=== PATIENT | female | born 1970 | race Caucasian/White ===

== ENCOUNTER 2022-03-06 08:38 | Outpatient (CLI) | payer OTHER, SELFPAY ==
[2022-03-06 16:49] LABS: Basophils Absolute Auto 0.03 K/uL (0.00-0.30); Basophils Percent Auto 0.4 % (0.0-3.0); Eosinophils Absolute Auto 0.32 K/uL (0.00-0.50); Eosinophils Percent Auto 4.1 % (0.0-7.0); Hematocrit 39.6 % (33.0-51.0); Hemoglobin* 12.9 gm/dL (12.0-16.0); Immature Granulocytes Abs Auto 0.03 K/uL (0.00-0.30); Lymphocytes Absolute Auto 1.85 K/uL (0.90-2.90); Lymphocytes Percent Auto 23.5 % (20-44); Mean Corpuscular HGB Conc 33 gm/dL (32-36); Mean Corpuscular Hemoglobin 30 pg (26-34); Mean Corpuscular Volume 93 fL (80-100); Monocytes Percent Auto 7.4 % (0.0-11.0); Neutrophils Absolute Auto 5.05 K/uL (1.7-7.0); Neutrophils Percent Auto 64.2 % (42.0-72.0); Platelet Count* 250 K/uL (140-440); Red Blood Count 4.25 m/uL (4.00-5.20); White Blood Count* 7.86 K/uL (4.50-11.00)
[2022-03-06 16:54] LABS: Slide Review Reflex No
[2022-03-06 17:52] LABS: Chloride* 105 mmol/L (96-114); Sodium* 140 mmol/L (135-149)
[2022-03-06 17:53] LABS: Potassium* 4.2 mmol/L (3.6-5.1)
[2022-03-06 17:55] LABS: Alanine Aminotransferase* 23 U/L (4-35); Carbon Dioxide* 26 mmol/L (20-32); Creatinine* 0.8 mg/dL (0.5-1.5); Estimated Glomerular Filt Rate 89 ml/min
[2022-03-06 17:56] LABS: Blood Urea Nitrogen* 15 mg/dL (7-30); Calcium* 9.1 mg/dL (8.4-10.6); Glucose* 78 mg/dL (60-115)
== END 2022-03-06 08:39 | disposition home or self-care (01) ==
PROVIDERS: PCP Family Medicine; Visit Provider Family Medicine
DX: G43.909 Migraine, unspecified, not intractable, without status migrainosus (principal)
CPT/HCPCS: 80048; 84460; 85025

== ENCOUNTER 2022-07-11 07:37 | Outpatient (CLI) | payer OTHER, SELFPAY | END 2022-07-11 07:38 | disposition home or self-care (01) | LOC: RAD 07:38 | PROVIDERS: PCP Family Medicine; Visit Provider Family Medicine | DX: Q23.1 Congenital insufficiency of aortic valve (principal); I35.1 Nonrheumatic aortic (valve) insufficiency; I34.0 Nonrheumatic mitral (valve) insufficiency; I07.1 Rheumatic tricuspid insufficiency | CPT/HCPCS: 93306 ==

== ENCOUNTER 2022-09-02 17:03 | Outpatient (CLI) | payer OTHER, SELFPAY ==
[2022-09-02 21:08] LABS: Uric Acid* 4.9 mg/dL (2.2-8.4)
[2022-09-02 21:11] LABS: C Reactive Protein* < 0.5 mg/dL (0.5-1.0)
[2022-09-04 21:01] LABS: Rheumatoid Factor <10 IU/mL (0-14)
[2022-09-05 11:03] LABS: Anti-Nuclear Ab(ANA)IgG ELISA Detected (None Detected)
[2022-09-06 22:57] LABS: ANA Pattern Speckled; Antinuclear AntibodyHEp-2 Detected (<1:80)
== END 2022-09-02 17:04 | disposition home or self-care (01) ==
PROVIDERS: PCP Family Medicine; Visit Provider Family Medicine
DX: M25.50 Pain in unspecified joint (principal)
CPT/HCPCS: 84550; 86039; 86140; 86431

== ENCOUNTER 2022-10-28 16:29 | Outpatient (CLI) | payer OTHER, SELFPAY ==
--- NOTE | 2022-10-28 16:45 | CRLHL7_ITS ---
For Patients: As a result of the Century Cures Act, medical imaging exams and procedure reports are released immediately into your electronic medical record. You may view this report before your referring provider. If you have questions, please contact your health care provider. BILATERAL SCREENING MAMMOGRAM WITH COMPUTER-AIDED DETECTION TECHNIQUE: CC and MLO views were obtained. These mammographic images have been obtained using full-field digital technique. These mammographic images were interpreted with the benefit of computer-aided detection. COMPARISON FILM: 04/02/21, 05/27/17, 12/15/13. FINDINGS: There are scattered areas of fibroglandular density. IMPRESSION: There is no radiographic evidence for malignancy. ASSESSMENT: BI-RADS Category 1: Negative RECOMMENDATION: Routine screening mammogram in 1 year. A lay language report of this examination will be provided to the patient. LUCHO NORWOOD M.D. Diagnostic/Nuclear Medicine Radiologist [email or web address] CHARLES:prieto Transcribed: 10/29/2022, 2:[address]/Dictated by: Lucho Norwood MD @ 10/29/2022 10:00:00 AM (Electronically Signed)
== END 2022-10-28 16:30 | disposition home or self-care (01) ==
LOC: MAMMO 16:30
PROVIDERS: PCP Family Medicine; Visit Provider Family Medicine
DX: Z12.31 Encounter for screening mammogram for malignant neoplasm of breast (principal)
CPT/HCPCS: 77067

== ENCOUNTER 2023-06-15 15:07 | Emergency (ER) | payer OTHER, SELFPAY ==
[2023-06-15 15:19] VITALS: BP 111/63; PULSE 78; RESP 20; TEMP 36.5; O2SAT 99; BMI 31.6
--- NOTE | 2023-06-15 15:37 | ED_ITS ---
HPI - Fall General Time Seen by Provider: 15:39 <Mirtha Fitzgerald Filed: 06/15/23 16:12> Date Seen: 06/15/23 <Mirtha Fitzgearld Filed: 06/15/23 16:12> Chief Complaint: Fall/Minor Trauma <Mirtha Fitzgerald Filed: 06/15/23 16:12> Stated Complaint: Fell this morning, knee/rib pain <Mirtha Fitzgerald Filed: 06/15/23 16:12> Time Seen by Provider: 06/15/23 15:09 <Mirtha Fitzgerald Filed: 06/15/23 16:12> Source: patient <Mirtha Fitzgerald Filed: 06/15/23 16:12> Mode of arrival: ambulatory <Mirtha Fitzgerald Filed: 06/15/23 16:12> Limitations: no limitations <Mirtha Fitzgerald Filed: 06/15/23 16:12> History of Present Illness HPI Narrative: Patient was at work this morning around 0830, 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 Patient did hit her head, but did not lose consciousness. Patient now complains of left-sided rib pain, sternum pain, and left knee pain. She is having some associated headaches. Of note, patient does have a history of migraines. Patient is not anticoagulated. No alcohol use, but does use tobacco daily. She reports multiple rib fractures in the past for which she has been prescribed lidocaine patches. Patient does have a lidocaine patch on at this time, but it is not giving her any relief. She rates her pain a 10/10 and states she is unable to ambulate due to the pain. Denies any neck pain, vision changes, abdominal pain, hematuria, bowel changes, or any other complaints at this time. <Mirtha Fitzgerald Filed: 06/15/23 16:12> Related Data Home Medications: Home Medications Medication Instructions Recorded Confirmed calcium 500 mg tablet 1,000 mg PO BID 01/24/22 04/06/23 cholecalciferol (vitamin D3) 25 25 mcg PO BID 01/24/22 04/06/23 mcg (1,000 unit) tablet cyclobenzaprine 10 mg tablet 10 mg PO TID PRN muscle spasm 01/24/22 04/06/23 multivitamin 1 tab PO QDAY 01/24/22 04/06/23 chlorhexidine gluconate 0.12 % 15 ml mucous membrane QDAY PRN 05/27/22 04/06/23 mouthwash magnesium aspartate HCl PO QDAY 05/27/22 04/06/23 zinc acetate PO QDAY 05/27/22 04/06/23 ascorbic acid (vitamin C) 1,000 mg 1 g PO BID 04/06/23 04/06/23 capsule Previous Rx's Medication Instructions Recorded nabumetone 750 mg tablet 750 mg PO BID #180 tabs 10/06/22 topiramate 100 mg tablet 100 mg PO QDAY #90 tabs 12/04/22 gabapentin 600 mg tablet 900 mg (1.5 x 600 mg) PO .HS #135 04/30/23 tabs omeprazole 20 mg capsule,delayed 20 mg PO QDAY #90 caps 04/30/23 release rizatriptan 10 mg tablet 10 mg PO ONCE PRN migraine 06/04/23 headache #10 tabs tramadol 50 mg tablet 50 mg PO TID PRN pain #90 tabs 06/04/23 cyclobenzaprine 10 mg tablet 10 mg PO TID #15 tabs 06/15/23 ketorolac 10 mg tablet 10 mg PO Q8H 5 days #15 tabs 06/15/23 <Mirtha Tate - Last Filed: 06/15/23 16:12> Allergies/Adverse Reactions: Allergies Allergy/AdvReac Type Severity Reaction Status Date / Time ibuprofen AdvReac Intermediate Unknown Verified 04/06/23 14:34 <Mirtha Tate Last Filed: 06/15/23 16:12> Review of Systems Status of ROS: Reports: 10 or more systems reviewed and unremarkable except as noted in History and below <Mirtha Tate Last Filed: 06/15/23 16:12> Const: Denies: fever, chills, change in weight, fatigue or night sweats <Mirtha Tate Last Filed: 06/15/23 16:12> Eyes: Denies: change in vision, blurry vision, blind spots, light sensitivity, eye discomfort, eye discharge or seeing flashes <Mirtha Tate Last Filed: 06/15/23 16:12> ENMT: Denies: throat pain, neck pain, difficulty swallowing or mouth pain <[facility] Last Filed: 06/15/23 16:12> Cardio: Denies: chest pain, palpitations, lightheadedness or shortness of breath with exertion <[facility] Last Filed: 06/15/23 16:12> Resp: Denies: shortness of breath or cough <[facility] Last Filed: 1 08/16/22 16:12> GI: Denies: difficulty swallowing <[facility] Last Filed: 06/15/23 16:12> : Denies: blood in urine <[facility] Last Filed: 06/15/23 16:12> Musculo: Reports: joint pain, limited range of motion (secondary to pain) and other (left-sided rib pain, sternum pain, and left knee pain); Denies: back pain, neck pain or extremity swelling <[facility] Last Filed: 06/15/23 16:12> Integ/Breast: Denies: rash, sores, new lesion or non-healing lesion <[facility] Last Filed: 06/15/23 16:12> Neuro: Reports: headache; Denies: numbness in extremities or weakness in extremities <[facility] Last Filed: 06/15/23 16:12> Endo: Denies: fatigue <[facility] Last Filed: 06/15/23 16:12> [facility] Medical History: Medical History (Updated 06/15/23 @ 17:04 by Rakesh Parker MD) Obesity with body mass index greater than 30 ?E66.9 - Obesity, unspecified (ICD-10) Nicotine dependence ?F17.200 - Nicotine dependence, unspecified, uncomplicated (ICD-10) History of cervical dysplasia (05/17/10) ?Z87.410 - Personal history of cervical dysplasia (ICD-10) Hirsutism ?L68.0 - Hirsutism (ICD-10) Gastroesophageal reflux disease ?K21.9 - Gastro-esophageal reflux disease without esophagitis (ICD-10) Migraine ?G43.909 - Migraine, unspecified, not intractable, without status migrainosus (ICD-10) Chronic low back pain ?M54.50 - Low back pain, unspecified (ICD-10) ?G89.29 - Other chronic pain (ICD-10) <Mirtha Lea - Last Filed: 06/15/23 16:12> Surgical History: Surgical History (Updated 03/02/22 @ 14:56 by Maeve Hood) History of tonsillectomy and adenoidectomy (1978) ?Z90.89 - Acquired absence of other organs (ICD-10) History of third molar tooth extraction (1993) ?K08.409 - Partial loss of teeth, unspecified cause, unspecified class (ICD- 10) History of lumpectomy of right breast (01/04/14) ?Z98.890 - Other specified postprocedural states (ICD-10) History of gastric bypass (2000) ?Z98.84 - Bariatric surgery status (ICD-10) History of ear surgery (2008) ?Z98.890 - Other specified postprocedural states (ICD-10) History of dilation and curettage (09/09/10) ?Z98.890 - Other specified postprocedural states (ICD-10) History of colposcopy (06/2010) ?Z98.890 - Other specified postprocedural states (ICD-10) <Mirtha Lea - Last Filed: 06/15/23 16:12> Family History: Family History (Updated 03/02/22 @ 14:58 by Maeve Hood) Father Heart disease Diabetes Aunt Ovarian cancer <Mirtha Lea - Last Filed: 06/15/23 16:12> Social History: Social History (Updated 03/02/22 @ 14:59 by Maeve Hood) Narrative: - Saqib, 1 son, 1/2 ppd smoker, no EtOH Smoking Status: Current every day smoker Little interest or pleasure in doing things: not at all Feeling down, depressed, or hopeless: not at all <Mirtha Tate - Last Filed: 06/15/23 16:12> Exam Narrative: Exam Narrative: General: Well nourished, healthy appearing, in no acute distress, but in obvious pain. HENMT: Normocephalic, atraumatic. No obvious hematoma. Eye: PERRL. EOMs intact bilaterally. Conjunctiva normal. Neck: Full ROM. Supple, no lymphadenopathy. Chest/Cardio: Normal inspection. Mild chest wall tenderness overlying the sternum and left rib cage. Regular rate and rhythm with S1 and S2. No clicks, rubs, gallops, or murmurs. 2+ peripheral pulses bilaterally. Lung: Symmetrical rise bilaterally. No increased effort or retractions. Lungs clear to auscultation bilaterally. GI: Normoactive bowel sounds. Soft, nondistended, nontender with no rebound tenderness or guarding. Extremities: No obvious deformities. Full ROM to upper extremities. Full passive range of motion to the left knee. Pain with active ROM of the left knee on flexion and extension. Tenderness noted over the left tibial head with mild swelling compared to R knee. No ecchymosis. Neuro: No focal motor or sensory deficits. CN II - XII intact. Psych: Cooperative. Speech normal. Thought process appropriate. <Mirtha Lea Last Filed: 06/15/23 16:12> Const: Vital Signs, click to edit/add: Vital Signs - 24 hr 06/15/23 15:19 Temperature 97.7 F Pulse Rate [Pulse Oximeter] 78 Respiratory Rate 20 Blood Pressure [Ri ght Upper Arm] 111/63 Pulse Oximetry 99 Oxygen Delivery Me thod Room Air <Mirtha Lea - Last Filed: 06/15/23 16:12> Vital Signs, click to edit/add: Vital Signs - 24 hr 06/15/23 15:19 Temperature 97.7 F Pulse Rate [Pulse Oximeter] 78 Respiratory Rate 20 Blood Pressure [Ri ght Upper Arm] 111/63 Pulse Oximetry 99 Oxygen Delivery Me thod Room Air <Rakesh Parker MD - Last Filed: 06/15/23 17:05> Eye: Direct Ophthalmoscopy: no photophobia <Mirtha Lea Last Filed: 06/15/23 16:12> Course Vital Signs Vital signs: Initial Vital Signs Temperature 97.7 F 06/15/23 15:19 Temperature Source Temporal Artery Scan 06/15/23 15:19 Pulse Rate 78 06/15/23 15:19 Respiratory Rate 20 06/15/23 15:19 Blood Pressure 111/63 06/15/23 15:19 Blood Pressure Mean 79 06/15/23 15:19 Blood Pressure Position Supine 06/15/23 15:19 Pulse Oximetry 99 06/15/23 15:19 Oxygen Delivery Method Room Air 06/15/23 15:19 Vital Signs Temperature 97.7 F 06/15/23 15:19 Pulse Rate 78 06/15/23 15:19 Respiratory Rate 20 06/15/23 15:19 Blood Pressure 111/63 06/15/23 15:19 Pulse Oximetry 99 06/15/23 15:19 Oxygen Delivery Method Room Air 06/15/23 15:19 Temperature 97.7 F 06/15/23 15:19 Pulse Rate 78 06/15/23 15:19 Respiratory Rate 20 06/15/23 15:19 Blood Pressure 111/63 06/15/23 15:19 Pulse Oximetry 99 06/15/23 15:19 Oxygen Delivery Method Room Air 06/15/23 15:19 <Mirtha Tate - Last Filed: 06/15/23 16:12> Initial Vital Signs Temperature 97.7 F 06/15/23 15:19 Temperature Source Temporal Artery Scan 06/15/23 15:19 Pulse Rate 78 06/15/23 15:19 Respiratory Rate 20 06/15/23 15:19 Blood Pressure 111/63 06/15/23 15:19 Blood Pressure Mean 79 06/15/23 15:19 Blood Pressure Position Supine 06/15/23 15:19 Pulse Oximetry 99 06/15/23 15:19 Oxygen Delivery Method Room Air 06/15/23 15:19 Vital Signs Temperature 97.7 F 06/15/23 15:19 Pulse Rate 78 06/15/23 15:19 Respiratory Rate 20 06/15/23 15:19 Blood Pressure 111/63 06/15/23 15:19 Pulse Oximetry 99 06/15/23 15:19 Oxygen Delivery Method Room Air 06/15/23 15:19 Temperature 97.7 F 06/15/23 15:19 Pulse Rate 78 06/15/23 15:19 Respiratory Rate 20 06/15/23 15:19 Blood Pressure 111/63 06/15/23 15:19 Pulse Oximetry 99 06/15/23 15:19 Oxygen Delivery Method Room Air 06/15/23 15:19 <Rakesh Parker MD - Last Filed: 06/15/23 17:05> Medications Administered Medications: Discontinued Medications Generic Name Dose Route Start Last Admin Trade Name Freq PRN Reason Stop Dose Admin Ketorolac Tromethamine 30 mg 06/15/23 15:45 12/11/23 16:05 Ketorolac 30 Mg/Ml Inj IM 06/15/23 15:46 30 mg ONCE ONE Administration <Mirtha Tate - Last Filed: 06/15/23 16:12> Discontinued Medications Generic Name Dose Route Start Last Admin Trade Name Lilly PRN Reason Stop Dose Admin Ketorolac Tromethamine 30 mg 06/15/23 15:45 06/15/23 16:05 Ketorolac 30 Mg/Ml Inj IM 06/15/23 15:46 30 mg ONCE ONE Administration <Rakesh Parker MD - Last Filed: 06/15/23 17:05> MDM - Fall MDM Narrative Medical decision making narrative: 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 Patient hit her head and complains of a headache at this time, but did not lose consciousness. Patient also reports left-sided rib pain, sternum pain, and left knee pain. Patient was able to ambulate post fall. She denies any lightheadedness or dizziness prior to her fall. On exam, patient is A&Ox3 with stable vital signs. She answers questions appropriately. Regular rate and rhythm and lungs are clear to auscultation bilaterally. There is chest wall tenderness overlying her sternum and left ribcage, no bruising or swelling appreciated. There is mild tenderness over her left tibial head with associated swelling, but no bruising or obvious deformity noted. She has associated pain with active ROM of the left knee on flexion and extension. She is unable to ambulate without difficulty. Physical exam is as mentioned above and otherwise unremarkable. Work up will include left rib XR, chest XR, and left knee XR. Based on the [place] CT rule criteria, a head CT is not necessary for the patient at this time. Differential diagnosis includes, but is not limited to, pneumothorax, clavicle fracture, sternum fracture, rib fracture, patella dislocation or fracture, tibial fracture, muscle strain. Ketorolac 30 mg IM administered for pain. 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 Patient hit her head and complains of a headache at this time, but did not lose consciousness. Patient also reports left-sided rib pain, sternum pain, and left knee pain. Patient was able to ambulate post fall. She denies any lightheadedness or dizziness prior to her fall. On exam, patient is A&Ox3 with stable vital signs. She answers questions appropriately. Regular rate and rhythm and lungs are clear to auscultation bilaterally. There is chest wall tenderness overlying her sternum and left ribcage, no bruising or swelling appreciated. There is mild tenderness over her left tibial head with associated swelling, but no bruising or obvious deformity noted. She has associated pain with active ROM of the left knee on flexion and extension. She is unable to ambulate without difficulty. Physical exam is as mentioned above and otherwise unremarkable. Work up will include left rib XR, chest XR, and left knee XR. Based on the [place] CT rule criteria, a head CT is not necessary for the patient at this time. Differential diagnosis includes, but is not limited to, pneumothorax, clavicle fracture, sternum fracture, rib fracture, patella dislocation or fracture, tibial fracture, muscle strain. Ketorolac 30 mg IM administered for pain. Chest x-ray with rib detail and left knee x-ray returned with no acute findings. Patient was informed of a small nodule in the left upper lung that could use a nonemergent follow-up CT for further evaluation. The patient also received a rib belt and prescription for Toradol and Flexeril. A return to work note is also provided. <Rakesh Parker MD - Last Filed: 06/15/23 17:05> Medical Records Attestation: I reviewed the patient's medical records. <Mirtha Tate - Last Filed: 06/15/23 16:12> Imaging Data XR L Knee: Radiologist's impression: No acute displaced fracture or malalignment. <Rakesh Parker MD - Last Filed: 06/15/23 17:05> CT scan - chest: Radiologist's impression: 1. No acute displaced rib fractures. No pneumothorax. No pleural effusions. 2. Nodular opacity in the right upper lung zone, appears increased in conspicuity since prior from 05/27/2022, nonemergent CT may be considered for further evaluation. <Rakesh Parker MD - Last Filed: 06/15/23 17:05> Discharge Plan Discharge Clinical Impression: Contusion of rib on left side, Contusion of knee, left <Mirtha Tate - Last Filed: 06/15/23 16:12> Patient Disposition: Home w/ Parent or Adult <Mirtha Tate - Last Filed: 06/15/23 16:12> Condition: Stable <Mirtha Tate - Last Filed: 06/15/23 16:12> Additional Instructions: Take medication as needed and directed. Follow up with primary MD for ongoing management. Increase activity as tolerated. <Mirtha Tate - Last Filed: 06/15/23 16:12> Prescriptions: New cyclobenzaprine 10 mg tablet 10 mg PO TID Qty: 15 0RF ketorolac 10 mg tablet 10 mg PO Q8H 5 Days Qty: 15 0RF No Action chlorhexidine gluconate 0.12 % mouthwash 15 ml mucous membrane QDAY PRN Patient Comments: RINSE WITH 1 CAPFUL BY MOUTH TWICE DAILY FOR 7 DAYS zinc acetate PO QDAY magnesium aspartate HCl PO QDAY ascorbic acid (vitamin C) 1,000 mg capsule 1 g PO BID calcium 500 mg tablet 1,000 mg PO BID cholecalciferol (vitamin D3) 25 mcg (1,000 unit) tablet 25 mcg PO BID cyclobenzaprine 10 mg tablet 10 mg PO TID PRN (Reason: muscle spasm) multivitamin Tablet 1 tab PO QDAY nabumetone 750 mg tablet 750 mg PO BID Qty: 180 3RF topiramate 100 mg tablet 100 mg PO QDAY Qty: 90 1RF omeprazole 20 mg capsule,delayed release(DR/EC) 20 mg PO QDAY Qty: 90 3RF gabapentin 600 mg tablet 900 mg PO .HS Qty: 135 3RF rizatriptan 10 mg tablet 10 mg PO ONCE PRN (Reason: migraine headache) Qty: 10 5RF tramadol 50 mg tablet 50 mg PO TID PRN (Reason: pain) Qty: 90 2RF <Mirtha Tate - Last Filed: 06/15/23 16:12> Follow Up/Referrals: Clint Mccollum MD [Primary Care Provider] - <Mirtha Caballero Last Filed: 06/15/23 16:12> Stand Alone Forms: MyHealth Info Instructions <Mirtha Tate - Last Filed: 06/15/23 16:12>
--- NOTE | 2023-06-15 15:38 | CRLHL7_ITS ---
For Patients: As a result of the Cures Act, medical imaging exams and procedure reports are released immediately into your electronic medical record. You may view this report before your referring provider. If you have questions, please contact your health care provider. Indication: Fall. Technique: Three views left knee. Comparison: None. Findings/Impression: No acute displaced fracture or malalignment. Mild infrapatellar soft tissue swelling. Joint spaces are maintained. Bony mineralization is age appropriate. Dictated by Clint Andino MD @ 06/15/2023 4:31:48 PM (Electronically Signed)
--- NOTE | 2023-06-15 15:38 | CRLHL7_ITS ---
For Patients: As a result of the Cures Act, medical imaging exams and procedure reports are released immediately into your electronic medical record. You may view this report before your referring provider. If you have questions, please contact your health care provider. INDICATION: Trauma. TECHNIQUE: Chest and left rib radiographs, 3 views. COMPARISON: Chest radiographs, left rib series 05/27/2022. FINDINGS: Mediastinum: Heart size and vasculature are normal in caliber and appearance. Mediastinum is within normal limits. Lungs: No focal consolidation. Linear bandlike opacifications of the lung bases likely due to subsegmental atelectasis and/or scarring. There is a 6 mm nodular opacity projecting over the posterior aspect of the right 5th rib there appeared present on the prior examination from 05/27/2022. Pleura: No pneumothorax or pleural effusions. Bones: Detailed oblique images of the ribs demonstrate no acute fractures or bone lesions. Upper Abdomen: Unremarkable. IMPRESSION: 1. No acute displaced rib fractures. No pneumothorax. No pleural effusions. 2. Nodular opacity in the right upper lung zone, appears increased in conspicuity since prior from 05/27/2022, nonemergent CT may be considered for further evaluation. Dictated by Ever Elkins MD @ 06/15/2023 4:31:47 PM (Electronically Signed)
[2023-06-15] MEDS: KETOROLAC 30 MG/ML inj IM (16:05)
== END 2023-06-15 17:17 | disposition home or self-care (01) ==
PROVIDERS: Emergency Provider Emergency Medicine Emergency Medical Services; PCP Family Medicine
DX: S80.02XA Contusion of left knee, initial encounter (principal); S20.212A Contusion of left front wall of thorax, initial encounter; W01.0XXA Fall on same level from slipping, tripping and stumbling without subsequent striking against object, initial encounter
CPT/HCPCS: 71101; 73562; 96372; 99283; 99284; J1885

== ENCOUNTER 2024-05-24 08:00 | Outpatient (CLI) | payer OTHER, SELFPAY | END 2024-05-24 08:01 | disposition home or self-care (01) | PROVIDERS: PCP Family Medicine; Visit Provider Family Medicine | DX: Z01.818 Encounter for other preprocedural examination (principal); Z13.6 Encounter for screening for cardiovascular disorders | CPT/HCPCS: 80048; 80061; 85025 ==

== ENCOUNTER 2024-08-23 08:15 | Outpatient (CLI) | payer OTHER, SELFPAY | END 2024-08-23 08:16 | disposition home or self-care (01) | LOC: MAMMO 08:16 | PROVIDERS: PCP Family Medicine; Visit Provider Family Medicine | DX: Z12.31 Encounter for screening mammogram for malignant neoplasm of breast (principal) | CPT/HCPCS: 77063; 77067 ==

== ENCOUNTER 2025-02-28 08:25 | Outpatient (CLI) | payer OTHER, SELFPAY | END 2025-02-28 08:26 | disposition home or self-care (01) | PROVIDERS: PCP Family Medicine; Visit Provider Family Medicine | DX: E55.9 Vitamin D deficiency, unspecified (principal); M85.80 Other specified disorders of bone density and structure, unspecified site | CPT/HCPCS: 80048; 82306 ==

== ENCOUNTER 2025-03-30 14:13 | Outpatient (CLI) | payer OTHER, SELFPAY ==
--- NOTE | 2025-03-30 14:30 | CRLHL7_ITS ---
For Patients: As a result of the Century Cures Act, medical imaging exams and procedure reports are released immediately into your electronic medical record. You may view this report before your referring provider. If you have questions, please contact your health care provider. DXA BONE MINERAL DENSITY STUDY Current height (in): 68. Weight (lb): 208. Menopause age: 51. Ethnicity: White. 1. Have you had a previous hip or vertebral fracture? No. 2. Have you had any fractures during your adult life which did not result from significant trauma (e.g., auto accident)? Yes. 3. Did either of your parents have a hip fracture? No. 4. Do you smoke? Yes. 5. Have you ever taken Glucocorticoids? No. 6. Do you have rheumatoid arthritis? No. 7. Do you have secondary osteoporosis? No. 8. Do you drink 3 or more alcoholic drinks per day? No. 9. Are you being treated for osteoporosis? No. 10. Have you ever taken any of the following medications: Actonel, Evista, Fosamax, Miacalcin, Reclast, Boniva, Forteo, HRT (i.e. estrogen/hormone therapy), Protelos, Prolia, Vitamin D, Calcium, other ??? please specify. ANSWER: Yes, Vitamin D, and Calcium. 11. Do you have any of the following medical conditions: Anorexia or bulimia, asthma or emphysema, end stage renal disease, hyperparathyroidism, any seizure disorders, cancer, inflammatory bowel diseases, hysterectomy, other ??? please specify. ANSWER: No. 12. What was your maximum height (inches)? 69.5. 13. Do you perform weight bearing exercise regularly? No. 14. Do you regularly consume dairy products? No. 15. Do you drink caffeinated beverages? Yes. 16. At what age did your period start? 16. 17. Are you premenopausal? No. 18. How many full term pregnancies have you had? 1. 19. Have you ever missed your period for more than 6 months in a row (not including or menopause)? No. TECHNIQUE: Bone mineral density study was performed using the [email or web address]. FINDINGS: The results of the study expressed as bone mineral density (BMD) are as follows: Lumbar spine L1 to L4: BMD: 0.833 g/cm2. T-score: -1.7. Z-score: -0.7. Neck Left: BMD: 0.598 g/cm2. T-score: -2.3. Z-score: -1.2. Right: BMD: 0.621 g/cm2. T-score: -2.1. Z-score: -1.0. Total Left: BMD: 0.758 g/cm2. T-score: -1.5. Z-score: -0.8. Right: BMD: 0.772 g/cm2. T-score: -1.4. Z-score: -0.7. IMPRESSION: Osteopenia. COMPARISON: Compared with scan of 07/25/2021, the bone mineral density has decreased by 12.2 percent at the spine and increased by 0.5percent at the hip. FRAX 10-year Fracture Risk Major Osteoporotic Fracture: 15 percent Hip Fracture: 3.8 percent Reported Risk Factors: [place] () Neck BMD=0.598, BMI=31.6 Clint Lezama M.D. Diagnostic Radiologist [email or web address] ELLA/celestine DW/Dictated by: Clint Lezama MD @ 03/31/2025 11:30:00 AM (Electronically Signed)
== END 2025-03-30 14:14 | disposition home or self-care (01) ==
LOC: RAD 14:14
PROVIDERS: PCP Family Medicine; Visit Provider Family Medicine
DX: M81.0 Age-related osteoporosis without current pathological fracture (principal); M85.89 Other specified disorders of bone density and structure, multiple sites; E55.9 Vitamin D deficiency, unspecified
CPT/HCPCS: 77080